=== PATIENT | male | born 1995 | race African-American/Black ===

== ENCOUNTER 2019-09-20 21:53 | Emergency (ER) | payer SELFPAY ==
[2019-09-20 22:00] VITALS: BP 131/74; PULSE 104; TEMP 101.4; BMI 25.8
[2019-09-20] MEDS ORDERED: ACETAMINOPHEN 325 MG TABLET (FP) PO ONE (22:02)
--- NOTE | 2019-09-20 22:04 | PDOC ---
Rapid Medical Evaluation Chief Complaint: Sore Throat Time Seen by Provider: 09/20/19 21:56 Medical Evaluation: Allergies Allergy/AdvReac Type Severity Reaction Status Date / Time No Known Allergies Allergy Verified 09/20/19 21:57 Vital Signs Temp Pulse Resp BP Pulse Ox 101.4 F H 104 H 18 131/74 99 09/20/19 21:58 09/20/19 21:58 09/20/19 21:58 09/20/19 21:58 09/20/19 21:58 09/20/19 22:02 I have performed a brief in-person evaluation of this patient. The patient presents with a chief complaint of: 3 days h/o sore throat, swollen tonsils, fever, chills and body aches. pt report recent travel to [place] few days ago prior to symptoms started. Pertinent physical exam findings: fever of 101.4F. enlarged left tonsil. throat patent I have ordered the following: rapid strep, rapid flu. Tylenol The patient will proceed to the ED for further evaluation. Discharge Disposition - Diagnosis Malaise Fever Qualifiers: Fever type: unspecified Qualified Code(s): R50.9 - Fever, unspecified - Discharge Dispostion Condition at time of disposition: Stable - Referrals - Patient Instructions - Post Discharge Activity
[2019-09-20] MEDS ORDERED: ACETAMINOPHEN 325 MG TABLET (FP) ONE (22:14)
--- NOTE | 2019-09-20 22:39 | PDOC ---
History of Present Illness - General Chief Complaint: Sore Throat Stated Complaint: COLD SYMPTOMS Time Seen by Provider: 09/20/19 21:56 History Source: Patient - History of Present Illness Initial Comments: 09/20/19 22:44 24 year old male c/o sore throat since recent travel to [facility] on 09/15. fever since today. denies NVD, abdominal , urinary symptoms, tersticular pain. ibuprofen at 3 pm No pmhx vaccines up to date 09/20/19 22:49 Past History - Past Medical History Allergies/Adverse Reactions: Allergies Allergy/AdvReac Type Severity Reaction Status Date / Time No Known Allergies Allergy Verified 09/20/19 21:57 Home Medications: Ambulatory Orders Amoxicillin - [Amoxicillin 500mg Capsule -] 500 mg PO BID #20 capsule 09/20/19 COPD: No - Psycho Social/Smoking Cessation Hx Smoking History: Never smoked Review of Systems - Review of Systems Able to Perform ROS?: Yes Is the patient limited Kyrgyz proficient: No Constitutional: Yes: Fever HEENTM: Yes: Throat Pain, Difficulty Swallowing. No: Mouth Swelling Respiratory: No: Symptoms reported, See HPI, Cough, Orthopnea, Shortness of Breath, SOB with Exertion, SOB at Rest, Stridor, Wheezing, Productive cough, Hemoptysis, Other Cardiac (ROS): No: Symptoms Reported, See HPI, Chest Pain, Edema, Irregular Heart Rate, Lightheadedness, Palpitations, Syncope, Chest Tightness, Other *Physical Exam - Vital Signs Last Vital Signs Temp Pulse Resp BP Pulse Ox 101.4 F H 104 H 18 131/74 99 09/20/19 21:58 09/20/19 21:58 09/20/19 21:58 09/20/19 21:58 09/20/19 21:58 - Physical Exam General Appearance: Yes: Appropriately Dressed HEENT: positive: Pharyngeal Erythema (tonsillar edema), Tonsillar Erythema, TM Dull. negative: TM Bulging, TM Erythema Neck: positive: Lymphadenopathy (R), Lymphadenopathy (L) Respiratory/Chest: positive: Lungs Clear, Normal Breath Sounds Cardiovascular: positive: Regular Rhythm, Regular Rate Gastrointestinal/Abdominal: positive: Normal Bowel Sounds, Soft. negative: Tender Extremity: positive: Normal Capillary Refill Integumentary: positive: Normal Color, Dry, Warm ED Treatment Course - Medications Given in the ED: ED Medications Discontinued Medications Generic Name Dose Route Start Last Admin Trade Name Jackie PRN Reason Stop Dose Admin Acetaminophen 975 mg 09/20/19 22:02 09/20/19 22:16 Tylenol - PO 09/20/19 22:03 975 mg ONCE ONE Administration ED Progress Note - Progress Note Progress Note: 09/20/19 22:47 Pharyngitis P: rapid strep influenza Discharge - Discharge Information Problems reviewed: Yes Clinical Impression/Diagnosis: Tonsillitis Condition: Stable - Additional Discharge Information Prescriptions: Amoxicillin - [Amoxicillin 500mg Capsule -] 500 mg PO BID #20 capsule - Follow up/Referral - Patient Discharge Instructions Patient Printed Discharge Instructions: Sore Throat Additional Instructions: Gargle with warm salty water take ibuprofen every 6 hours as needed for pain take tylenol every 4 hours as needed for pain throw away toothbrush in 3-4 days do not share cups or utensil with other Take amoxicillin as prescribed follow up with your doctor as soon as possible. Additional Instructions: Please call your personal physician to report your Emergency Department visit and to report your progress, if any. If there is no improvement in symptoms in 2 days call your physician. Return to the Emergency Department for any worsening symptoms. - Post Discharge Activity Work/Back to School Note: Back to Work
[2019-09-20] MEDS ORDERED: IBUPROFEN 600 MG TABLET (FP) PO ONE ×2 (22:49→23:01)
[2019-09-20] MEDS ORDERED: DEXAMETHASONE SOD PHOSPHATE 10 MG/1 ML VIAL ONE (23:28)
[2019-09-20] MEDS ORDERED: DEXAMETHASONE 4 MG TABLET (FP) PO ONE (23:30)
== END 2019-09-20 23:48 | disposition home or self-care (01) ==
LOC: JERFT 21:53 → JER 21:53
DX: J03.90 Acute tonsillitis, unspecified (principal)
CPT/HCPCS: 87070; 87804; 87880; 99282-25